=== PATIENT | female | born 1985 | race Caucasian/White ===

== ENCOUNTER 2022-10-06 11:10 | Emergency (ER) | payer BC, SELFPAY ==
[2022-10-06 11:12] VITALS: BP 133/93; PULSE 69; RESP 18; TEMP 36.6; O2SAT 100
--- NOTE | 2022-10-06 12:36 | ED.GENADULT ---
HPI - General Adult General Chief complaint: Unspecified Stated complaint: sinus pressure and facial swelling Time Seen by Provider: 10/06/22 11:53 History of Present Illness HPI narrative: 37-year-old female presents today with complaints of 1 week of congestion, intermittent sinus headache, and nasal swelling. Patient states 2 days ago she did a telehealth visit was given azithromycin. Took the medication the first day and the second day today is the third day and woke up with increased tenderness and swelling to the bridge of her nose and decided not to take the medication and come in today. Patient denies any fevers, body aches, chills, teeth pain, sick contacts. Denies usage of any other [id number] medications at this time. Related Data Home Medications Medication Instructions Recorded Confirmed apixaban 2.5 mg tablet (Eliquis) 2.5 mg PO BID 11/26/19 duloxetine 60 mg capsule,delayed 60 mg PO DAILY 11/26/19 release sprinkle famotidine 20 mg tablet 20 mg PO DAILY 11/26/19 lisdexamfetamine 40 mg capsule 40 mg PO DAILY 11/26/19 (Vyvanse) mesalamine 1.2 gram tablet,delayed 4.8 gm PO DAILY 11/26/19 release (Lialda) tramadol 50 mg tablet 50 mg PO Q6H PRN 11/26/19 Allergies Allergy/AdvReac Type Severity Reaction Status Date / Time No Known Allergies Allergy Verified 10/06/22 11:10 [facility] [place] Past Medical History Medical History DVT (deep vein thrombosis) in Pulmonary embolism Ulcerative colitis Surgical History Surgical History Previous section Exam Const: General: cooperative, healthy appearing, comfortable, no acute distress and well developed Orientation/consciousness: patient oriented x3 HENMT: Head: normal to inspection Ears: external ears normal, TM's normal bilaterally and EAC's normal Face/Nose/Sinus: Normal external nose present and Abnormal mucous membranes and turbinates present erythematous Face and sinus: sinuses nontender Throat: posterior oropharynx abnormal erythema Eyes: General: appearance normal, both eyes and all related structures Resp: Effort & Inspection: normal respiratory effort and able to speak in complete sentences Auscultation: clear to auscultation bilaterally Cardio: Rate: regular rate Rhythm: regular rhythm Heart sounds: S1 normal heart sound present and S2 normal heart sound present Neuro: General: patient oriented x3 Course Course Emergency Course: Shared decision making made with the patient. Will stop azithromycin and changed to Augmentin. 5-day course of steroids will be given also to help with inflammation. Patient aware after nose becomes nontender to start some Flonase to help also. Tylenol as needed for pain. Vital Signs Vital signs: Vital Signs Temperature 97.9 F 10/06/22 11:12 Pulse Rate 69 10/06/22 11:12 Respiratory Rate 18 10/06/22 11:12 Blood Pressure 133/93 H 10/06/22 11:12 Pulse Oximetry 100 10/06/22 11:12 Oxygen Delivery Room Air 10/06/22 11:12 Temperature 97.9 F 10/06/22 11:12 Pulse Rate 69 10/06/22 11:12 Respiratory Rate 18 10/06/22 11:12 Blood Pressure 133/93 H 10/06/22 11:12 Pulse Oximetry 100 10/06/22 11:12 Oxygen Delivery Room Air 10/06/22 11:12 Medical Decision Making MDM Narrative Medical decision making narrative: 37-year-old female HPI as noted. Differentials as noted below. Patient afebrile with stable vital signs. No signs of acute otitis media. No tenderness to the sinuses. We will continue to treat for acute sinusitis but will change to Augmentin with a short burst of steroids to help with inflammation. Differential Diagnosis Differential Diagnosis: acute sinusisis, URI, nasal pain, Vital Signs Vital Signs: Vital Signs Temperature 97.9 F 10/06/22 11:12 Pulse Rate 69 10/06/22 11:12 Respiratory Rate 18 10/06/22 11
== END 2022-10-06 12:48 | disposition home or self-care (01) ==
PROVIDERS: Emergency Provider Nurse Practitioner Family
DX: J01.90 Acute sinusitis, unspecified (principal); Z86.718 Personal history of other venous thrombosis and embolism; Z86.711 Personal history of pulmonary embolism
CPT/HCPCS: 99283